=== PATIENT | male | born 1965 | race Caucasian/White ===

== ENCOUNTER 2016-11-15 13:54 | Emergency (ER) | payer SELFPAY ==
[~2016-11-15] VITALS: Ht 167.6 cm; Wt 85.0 kg
[~2016-11-15 13:54] MED LIST: 1-ME1LIQ PO; ALPR0.25 PO; CLON.1 PO; FOLI1 PO; GLUCTAB PO; LISI5 PO; LORTA5 PO; MECL25CH PO; METO100T9 PO; METO50TA PO; PERC7.5T13 PO
[2016-11-15 13:55] VITALS: BP 184/90; PULSE 79; RESP 12; TEMP 98.6; O2SAT 99
--- NOTE | 2016-11-15 14:07 | PD ---
Physical Exam Date Seen by Provider: Nov 15, 2016 Time Seen by Provider: 14:06 Narrative 51 yo male here for right flank pain. Possible kidney stone. Going on for a week , not better. pain is 8/10. Polyuria. No N/V/D. Vitals are stable in triage. Awaiting bed placement. Data Data Last Documented VS Vital Signs Date Time Temp Pulse Resp B/P (MAP) Pulse Ox O2 Delivery O2 Flow Rate FiO2 11/15/16 13:55 98.6 79 12 184/90 (121) 99 MDM Medical Record Reviewed: Yes Supervised Visit with QUYEN: Humble Skinner Nov 15, 2016 14:07
[2016-11-15 15:06] LABS: BACTERIA, URINE OCC /hpf; BLOOD, URINE NEG (NEG); COMMENT (UR) CULTURE INDICATED; CULTURE IF INDICATED CULTURE INDICATED; GLUCOSE,URINE 1000 mg/dL (NEG); KETONE, URINE NEG (NEG); NITRITE,URINE NEG (NEG); SQUAMOUS EPITHELIAL CELL URINE 1 /hpf (0-5); URINE COLOR YELLOW (YELLW/STRAW)
[2016-11-15 15:09] LABS: AUTOMATED NEUTROPHIL # 5.6 TH/MM3 (1.8-7.7); BASOPHIL # 0.1 TH/MM3 (0-0.2); BASOPHIL % 0.7 % (0.0-2.0); EOSINOPHIL # 0.1 TH/MM3 (0-0.4); HEMATOCRIT 47.7 % (39.0-51.0); HEMO FLAGS DIFF FINAL; LYMPH % 15.5 % (9.0-44.0); LYMPHOCYTE # 1.2 TH/MM3 (1.0-4.8); MEAN CELL VOLUME 92.6 FL (80.0-100.0); MEAN CORPUSCULAR HEMOGLOBIN 31.2 PG (27.0-34.0); MEAN CORPUSCULAR HGB CONC 33.7 % (32.0-36.0); MONO % 11.2 % (0.0-8.0); NEUT % 71.6 % (16.0-70.0); PLATELET COUNT 165 TH/MM3 (150-450); RED BLOOD COUNT 5.15 MIL/MM3 (4.50-5.90); RED CELL DISTRIBUTION WIDTH 12.9 % (11.6-17.2); WHITE BLOOD COUNT 7.8 TH/MM3 (4.0-11.0)
[2016-11-15 15:17] LABS: BICARBONATE 28.7 MEQ/L (21.0-32.0); POTASSIUM 4.2 MEQ/L (3.5-5.1)
--- NOTE | 2016-11-15 15:51 | PD ---
HPI Chief Complaint: Flank/Kidney Pain Time Seen by Provider: 15:44 Travel History International Travel<30 days: No Contact w/Intl Traveler<30days: No Traveled to known affect area: No History of Present Illness HPI 51-year-old male with type 2 diabetes presents to the right part was sterilely history of worsening right flank pain. Patient states it's worse with getting up and moving around. He denies dysuri, Fever, Nausea, vomiting. He denies history of kidney stones officially, but thinks he may have passed one about a year ago. He also states about 4 months of sinus congestion and postnasal drip and cough. Patient is a smoker with increased wheezing the past week. He denies significant shortness of breath or fever. Right flank pain is 8 out of 10. Patient is allergic to penicillin, and sulfa. Patient has a history of MRSA. PFSH Past Medical History Hx Anticoagulant Therapy: No Anxiety: Yes Depression: Yes Cardiovascular Problems: No Chemotherapy: No Cerebrovascular Accident: No Diabetes: Yes Diminished Hearing: No Hypertension: Yes Respiratory: No Immunizations Current: Yes Social History Alcohol Use: Yes (4 BEER/DAILY) Tobacco Use: Yes (1 PPD) Substance Use: No Allergies-Medications (Allergen,Severity, Reaction): Coded Allergies: Sulfa (Sulfonamide Antibiotics) (Unverified Allergy, Intermediate, RASH/ HIVES, 11/15/16) penicillin G (Unverified Allergy, Intermediate, RASH/HIVES, 11/15/16) sulfamethoxazole (Unverified Allergy, Unknown, 11/15/16) trimethoprim (Unverified Allergy, Unknown, 11/15/16) *MDRO Multi-Drug Resistant Organism (Verified Adverse Reaction, Unknown, ) 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 Reported Meds & Prescriptions Reported Meds & Active Scripts Active Ventolin Hfa 18 GM Inh (Albuterol Sulfate) 90 Mcg/Act Aer 2 Puff INH Q4-6H PRN Cipro (Ciprofloxacin HCl) 500 Mg Tab 500 Mg PO BID 14 Days Percocet 7.5-325 mg (Oxycodone-Acetaminophen 7.5-325 mg) 1 Tab 1-2 Tab PO Q4H PRN Meclizine Hcl (Meclizine HCl) 25 Mg Chw 25 Mg PO Q8H PRN [place] 5-325 mg (Hydrocodone-Acetaminophen 5-325 mg) 5 mg/325 mg Tab 1 Tab PO Q6H PRN Metoprolol Tartrate 50 mg (Metoprolol Tartrate) 50 Mg Tab 50 Mg PO TID Catapres 0.1 mg (Clonidine HCl) 0.1 Mg Tab 1 Tab PO BID Folate 1 Mg Tab (Folic Acid) 1 Mg Tab 1 Mg PO DAILY Prinivil 5 mg (Lisinopril) 5 Mg Tab 10 Mg PO DAILY Reported Glucophage XR 24 HR (Metformin HCl) 500 Mg Tab 500 Mg PO BIDPC Metoprolol Succinate ER 100 mg (Metoprolol Succinate) 100 Mg Tab 100 Mg PO DAILY 1-Methyl 2-Pyrrolidinone (1-Methyl 2-Pyrrolidone (Bulk)) 10 Mg Tab 1 Tab PO DAILY Alprazolam 0.25 Mg Tab 0.25 Mg PO BID Glucophage XR 24 HR (Metformin HCl) 500 Mg Tab 1,000 Mg PO BID Review of Systems Except as stated in HPI: all other systems reviewed are Neg General / Constitutional: No: Fever, Chills Eyes: No: Visual changes HENT: Positive: Headaches, Sore Throat, Rhinitis, Rhinorrhea, Congestion, No: Nosebleed, Neck Stiffness, Neck Pain, Dental Difficulties, Ear Discharge, Earache Cardiovascular: No: Chest Pain or Discomfort Respiratory: Positive: Cough, Wheezing, No: Shortness of Breath, Sneezing Gastrointestinal: No: Nausea, Vomiting, Diarrhea, Abdominal Pain Genitourinary: Positive: Flank Pain (see history present illness), No: Urgency , Frequency, Dysuria, Hematuria Musculoskeletal: No: Pain Skin: No Rash Neurologic: No: Weakness Psychiatric: No: Depression Endocrine: No: Polydipsia Hematologic/Lymphatic: No: Easy Bruising Physical Exam Narrative GENERAL: Patient appears in mild to moderate distress. SKIN: Warm and dry. Color. Normal turgor. No rash. HEAD: Atraumatic. Normocephalic. EYES: Pupils equal and round. No scleral icterus. No injection or drainage. ENT: No nasal bleeding or discharge. Mucous membranes pink and moist. TMs are clear bilaterally. Pharynx is unremarkable. Sinus tenderness to palpation. NECK: Trachea midline. Supple and nontender without lymphadenopathy. CARDIOVASCULAR: Regular rate and rhythm. RESPIRATORY: No accessory muscle use. Mild to moderate Diffuse wheezes throughout to auscultation. No rales or rhonchi. Breath sounds equal bilaterally. GASTROINTESTINAL: Abdomen soft, mild right sided flank tenderness, nondistended. No specific rebound is noted. Hepatic and splenic margins not palpable. Mild right-sided CVA tenderness with percussion. MUSCULOSKELETAL: Extremities without clubbing, cyanosis, or edema. No obvious deformities. NEUROLOGICAL: Awake and alert. No obvious cranial nerve deficits. Motor grossly within normal limits. Five out of 5 muscle strength in the arms and legs. Normal speech. PSYCHIATRIC: Appropriate mood and affect; insight and judgment normal. Data Data Last Documented VS Vital Signs Date Time Temp Pulse Resp B/P (MAP) Pulse Ox O2 Delivery O2 Flow Rate FiO2 11/15/16 16:08 99 11/15/16 13:55 98.6 79 12 Orders Orders Complete Blood Count With Diff (11/15/16 14:07) Basic Metabolic Panel (Bmp) (11/15/16 14:07) Urinalysis - C+S If Indicated (11/15/16 14:07) Urine Culture (11/15/16 14:45) Ct Abd/Pel W/O Iv Contrast (11/15/16 15:52) Iv Access Insert/Monitor (11/15/16 15:52) Ecg Monitoring (11/15/16 15:52) Oximetry (11/15/16 15:52) NPO (11/15/16 15:52) Ondansetron Inj (Zofran Inj) (11/15/16 16:00) Sodium Chlor 0.9% 1000 Ml Inj (Ns 1000 M (11/15/16 15:52) Sodium Chloride 0.9% Flush (Ns Flush) (11/15/16 16:00) Chest, Single Ap (11/15/16 15:52) Ketorolac Inj (Toradol Inj) (11/15/16 16:00) Lisinopril (Prinivil) (11/15/16 16:00) Morphine Inj (Morphine Inj) (11/15/16 16:00) Albuterol-Ipratropium Neb (Duoneb Neb) (11/15/16 16:00) Ciprofloxacin (Cipro) (11/15/16 17:45) Labs Laboratory Tests Test 11/15/16 14:40 11/15/16 14:45 White Blood Count 7.8 TH/MM3 Red Blood Count 5.15 MIL/MM3 Hemoglobin 16.1 GM/DL Hematocrit 47.7 % Mean Corpuscular Volume 92.6 FL Mean Corpuscular Hemoglobin 31.2 PG Mean Corpuscular Hemoglobin Concent 33.7 % Red Cell Distribution Width 12.9 % Platelet Count 165 TH/MM3 Mean Platelet Volume 8.4 FL Neutrophils (%) (Auto) 71.6 % Lymphocytes (%) (Auto) 15.5 % Monocytes (%) (Auto) 11.2 % Eosinophils (%) (Auto) 1.0 % Basophils (%) (Auto) 0.7 % Neutrophils # (Auto) 5.6 TH/MM3 Lymphocytes # (Auto) 1.2 TH/MM3 Monocytes # (Auto) 0.9 TH/MM3 Eosinophils # (Auto) 0.1 TH/MM3 Basophils # (Auto) 0.1 TH/MM3 CBC Comment DIFF FINAL Differential Comment Blood Urea Nitrogen 11 MG/DL Creatinine 1.02 MG/DL Random Glucose 305 MG/DL Calcium Level 9.0 MG/DL Sodium Level 138 MEQ/L Potassium Level 4.2 MEQ/L Chloride Level 100 MEQ/L Carbon Dioxide Level 28.7 MEQ/L Anion Gap 9 MEQ/L Estimat Glomerular Filtration Rate 77 ML/MIN Urine Color YELLOW Urine Turbidity CLEAR Urine pH 6.0 Urine Specific [place] 1.030 Urine Protein TRACE mg/dL Urine Glucose (UA) 1000 mg/dL Urine Ketones NEG mg/dL Urine Occult Blood NEG Urine Nitrite NEG Urine Bilirubin NEG Urine Urobilinogen LESS THAN 2.0 MG/DL Urine Leukocyte Esterase SMALL Urine RBC 1 /hpf Urine WBC 13 /hpf Urine Squamous Epithelial Cells 1 /hpf Urine Bacteria OCC /hpf Microscopic Urinalysis Comment CULTURE INDICATED MDM Medical Decision Making Medical Screen Exam Complete: Yes Emergency Medical Condition: Yes Differential Diagnosis Right flank pain. Possible renal colic. Wheezing. Rhonchi. Narrative Course Patient appears medically stable at time of exam. Labs show CBC within normal limits. CMP is unremarkable except for glucose of 305. He is a known type 2 diabetic. Urinalysis shows greater than 1000 close, small leukocyte esterase, 13 white blood cells per high-power field, and occasional bacteria. Chest x-ray is unremarkable per radiologist. Patient is given 30 mg Toradol IV, Zofran IV, 2 mg morphine IV. DuoNeb [address] shows no significant findings per radiology. Patient is symptomatically improved after the above treatment. Patient is treated with Cipro 500 mg twice a day 2 weeks to cover for UTI/ prostatitis as well as bronchitis. Patient is encouraged to quit smoking. Patient is given Ventolin unit dose inhaler 2 puffs every 4-6 hours when necessary cough/wheeze. Patient should follow-up with a local primary care physician or return to emergency department if worsening symptoms warrant. Diagnosis Primary Impression: Prostatitis, acute Additional Impressions: Urinary tract infection Qualified Codes: N30.00 - Acute cystitis without hematuria Bronchitis Referrals: [facility] call for appointment Patient Instructions: Bacteremia (ED), General Instructions, How to Stop Smoking (DC), How to Use a Metered-Dose Inhaler (ED), Prostatitis (ED) Additional Instructions: CT shows no significant findings per radiology. Patient is symptomatically improved after the above treatment. Patient is treated with Cipro 500 mg twice a day 2 weeks to cover for UTI/ prostatitis as well as bronchitis. Patient is encouraged to quit smoking. Patient is given Ventolin unit dose inhaler 2 puffs every 4-6 hours when necessary cough/wheeze. Patient should follow-up with a local primary care physician or return to emergency department if worsening symptoms warrant. Scripts Albuterol 18 GM Inh (Ventolin Hfa 18 GM Inh) 90 Mcg/Act Aer 2 PUFF INH Q4-6H Y for SHORTNESS OF BREATH, #1 INHALER 0 Refills Prov: Perico Gómez MD 11/15/16 Ciprofloxacin (Cipro) 500 Mg Tab 500 MG PO BID for Infection for 14 Days, TAB 0 Refills Prov: Perico Gómez MD 11/15/16 Disposition: 01 DISCHARGE HOME Condition: Stable Efrain Washington Nov 15, 2016 15:51
[2016-11-15] MEDS ORDERED: SODIUM CHLOR 0.9% 1000 ML INJ 1,000 ML IV SCH (15:52)
[2016-11-15] MEDS ORDERED: KETOROLAC TROMETHAMINE 30 MG/ML (IVP) VIAL IVP ONE (16:00)
[2016-11-15] MEDS ORDERED: LISINOPRIL 20 MG TAB PO ONE (16:00)
[2016-11-15] MEDS ORDERED: ONDANSETRON HCL 4 MG/2 ML VIAL IVP ONE (16:00)
[2016-11-15] MEDS ORDERED: RESP: ALBUTEROL 2.5 MG/IPRATROPIUM 0.5 MG NEB (SCH) INH ONE (16:00)
[2016-11-15] MEDS ORDERED: MORPHINE SULFATE 4 MG/ML INJ IV PUSH ONE (16:00)
[2016-11-15] MEDS ORDERED: SODIUM CHLORIDE 0.9% FLUSH 10 ML FLUSH IV FLUSH PRN (16:00)
[2016-11-15 16:08] VITALS: O2SAT 99
--- NOTE | 2016-11-15 16:40 | RADRPT ---
EXAM DATE/TIME: 11/15/2016 15:52 [facility] COMPARISON: CHEST PA & LAT, September 25, 2015, 8:38. INDICATIONS : Flank pain, no chest complaint. MEDICAL HISTORY : Hypertension. SURGICAL HISTORY : None. ENCOUNTER: Initial ACUITY: 2 weeks PAIN SCORE: 0/10 LOCATION: Bilateral chest FINDINGS: A single view of the chest demonstrates the lungs to be symmetrically aerated without evidence of mas s, infiltrate or effusion. The cardiomediastinal contours are unremarkable. Previous left clavicle f racture with nonunion. CONCLUSION: No acute disease Adalid Degroot MD on November 15, 2016 at 16:38 Board Certified Radiologist. This report was verified electronically.
--- NOTE | 2016-11-15 17:19 | RADRPT ---
EXAM DATE/TIME: 11/15/2016 16:48 [facility] COMPARISON: No previous studies available for comparison. INDICATIONS : Patient complains of right flank pain for one week. ORAL CONTRAST: No oral contrast ingested. RADIATION DOSE: 8.36 CTDIvol (mGy) MEDICAL HISTORY : Diabetes mellitus type 1. Hypertension. SURGICAL HISTORY : None. ENCOUNTER: Initial ACUITY: 1 week PAIN SCALE: 5/10 LOCATION: Right flank TECHNIQUE: Volumetric scanning of the abdomen and pelvis was performed. Using automated exposure control and ad justment of the mA and/or kV according to patient size, radiation dose was kept as low as reasonably achievable to obtain optimal diagnostic quality images. DICOM format image data is available electro nically for review and comparison. FINDINGS: There are several mildly prominent upper abdominal lymph nodes identified, most conspicuous is a port ocaval node which measures approximately 4.7 x 2 x 3.9 cm (sagittal x AP x transverse). LOWER LUNGS: The visualized lower lungs are clear. LIVER: Diffusely diminished densities suggesting steatosis. No definite mass or ductal dilatation. SPLEEN: Normal size without lesion. PANCREAS: Within normal limits. KIDNEYS: Normal in size and shape. There is no mass, stone, or hydronephrosis. ADRENAL GLANDS: Within normal limits. VASCULAR: There is no aortic aneurysm. BOWEL/MESENTERY: The stomach, small bowel, and colon demonstrate no acute abnormality. There is no free intraperitone al air or fluid. ABDOMINAL WALL: Within normal limits. RETROPERITONEUM: There is no lymphadenopathy. BLADDER: No wall thickening or mass. REPRODUCTIVE: Within normal limits. INGUINAL: There is no lymphadenopathy or hernia. MUSCULOSKELETAL: Within normal limits for patient age. CONCLUSION: No evidence of kidney stone or hydronephrosis. Hepatic steatosis. Mildly prominent upper abdominal lymph nodes, largest in the portacaval space has an otherwise fairly benign appearance and could probably be safely followed Adalid Degroot MD on November 15, 2016 at 16:59 Board Certified Radiologist. This report was verified electronically.
[2016-11-15] MEDS ORDERED: VENTAER INH (17:37)
[2016-11-15] MEDS ORDERED: CIPR-9 PO (17:37)
[2016-11-15] MEDS ORDERED: CIPROFLOXACIN 500 MG TAB PO ONE (17:45)
== END 2016-11-15 18:26 | disposition home or self-care (01) ==
LOC: NEPD 13:54
DX: N41.0 Acute prostatitis (principal); N39.0 Urinary tract infection, site not specified; J40 Bronchitis, not specified as acute or chronic; R51 Headache; E11.9 Type 2 diabetes mellitus without complications; F41.9 Anxiety disorder, unspecified; F32.9 Major depressive disorder, single episode, unspecified; I10 Essential (primary) hypertension; F17.200 Nicotine dependence, unspecified, uncomplicated
CPT/HCPCS: 71010; 74176; 80048; 81001; 85025; 87086; 94664; 96374; 96375; 99285; J1885; J2270; J2405; J7030

== ENCOUNTER 2016-12-15 10:00 | Emergency (ER) | payer OTHER ==
[~2016-12-15] VITALS: Ht 167.6 cm; Wt 90.0 kg
[~2016-12-15 10:00] MED LIST changes: +CIPR-9 PO; +VENTAER INH
[2016-12-15 10:03] VITALS: BP 179/98; PULSE 110; RESP 18; TEMP 100.1; O2SAT 96
[2016-12-15] MEDS ORDERED: SODIUM CHLOR 0.9% 1000 ML INJ 1,000 ML IV SCH (10:49)
[2016-12-15] MEDS ORDERED: oxyCODONE/ACETAMINOPHEN 5 MG/325 MG TAB PO ONE (11:00)
[2016-12-15] MEDS ORDERED: SODIUM CHLORIDE 0.9% FLUSH 10 ML FLUSH IVF PRN (11:00)
[2016-12-15] MEDS ORDERED: TETANUS/DIPHTHERIA TOXOID ADULT 0.5 ML VIAL IM ONE (11:00)
[2016-12-15 11:16] VITALS: RESP 20; O2SAT 96
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
[2016-12-15 11:45] LABS: AUTOMATED NEUTROPHIL # 7.7 TH/MM3 (1.8-7.7); BASOPHIL % 0.3 % (0.0-2.0); EOSINOPHIL % 0.4 % (0.0-4.0); HEMATOCRIT 47.3 % (39.0-51.0); HEMO FLAGS DIFF FINAL; MEAN CELL VOLUME 91.5 FL (80.0-100.0); MEAN CORPUSCULAR HEMOGLOBIN 31.1 PG (27.0-34.0); MONO % 9.5 % (0.0-8.0); NEUT % 79.8 % (16.0-70.0); PLATELET COUNT 157 TH/MM3 (150-450); RED BLOOD COUNT 5.17 MIL/MM3 (4.50-5.90); RED CELL DISTRIBUTION WIDTH 12.7 % (11.6-17.2); WHITE BLOOD COUNT 9.6 TH/MM3 (4.0-11.0)
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
[2016-12-15 12:13] LABS: BICARBONATE 27.4 MEQ/L (21.0-32.0); POTASSIUM 4.5 MEQ/L (3.5-5.1)
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
[2016-12-15] MEDS ORDERED: LISI10TA3 PO (12:46)
[2016-12-15] MEDS ORDERED: HYDR-3535 PO (12:46)
[2016-12-15] MEDS ORDERED: ALPR.25 PO (12:46)
[2016-12-15] MEDS ORDERED: METF1000 PO (12:46)
[2016-12-15] MEDS ORDERED: METO100T PO (12:46)
[2016-12-15] MEDS ORDERED: PERC5TAB12 PO (13:30)
[2016-12-15] MEDS ORDERED: CEPH-460 PO (13:30)
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
== END 2016-12-15 15:47 | disposition home or self-care (01) ==
LOC: NEPD 10:00
DX: S82.432A Displaced oblique fracture of shaft of left fibula, initial encounter for closed fracture (principal); S00.81XA Abrasion of other part of head, initial encounter; F41.9 Anxiety disorder, unspecified; F32.9 Major depressive disorder, single episode, unspecified; E11.9 Type 2 diabetes mellitus without complications; I10 Essential (primary) hypertension; F17.200 Nicotine dependence, unspecified, uncomplicated; V28.4XXA Motorcycle driver injured in noncollision transport accident in traffic accident, initial encounter; Z23 Encounter for immunization
CPT/HCPCS: 29505; 29515; 70450; 71010; 72125; 73590; 73610; 80048; 85025; 90714; 96372; 99285; E0113; J7030; L0150

== ENCOUNTER 2017-01-05 13:51 | Emergency (ER) | payer SELFPAY ==
[~2017-01-05 13:51] MED LIST changes: -1-ME1LIQ PO; +ALPR.25 PO; -ALPR0.25 PO; +CEPH-460 PO; -CIPR-9 PO; -CLON.1 PO; -FOLI1 PO; -GLUCTAB PO; +HYDR-3535 PO; +LISI10TA3 PO; -LISI5 PO; -LORTA5 PO; -MECL25CH PO; +METF1000 PO; +METO100T PO; -METO100T9 PO; -METO50TA PO; +PERC5TAB12 PO; -PERC7.5T13 PO
[2017-01-05 13:53] VITALS: BP 152/96; PULSE 73; RESP 14; TEMP 98.2; O2SAT 98
--- NOTE | 2017-01-05 14:44 | PD ---
HPI Chief Complaint: Musculoskeletal Complaint Time Seen by Provider: 14:41 Travel History International Travel<30 days: No Contact w/Intl Traveler<30days: No Traveled to known affect area: No History of Present Illness HPI 51-year-old male presents to the emergency room from [facility] for brace basement. Patient was sent here by Dr. Echavarria with a prescription for a walking boot. He was diagnosed with proximal fibular fracture of the left leg one month ago. Has follow-up appointment today, patient states that orthopedic physician was most concerned about syndesmotic ligament injury and medial ankle sprain. Patient reports improvement in pain. States he has had to work since fracturing his leg and has been walking on it without any brace. PFSH Past Medical History Hx Anticoagulant Therapy: No Anxiety: Yes Depression: Yes Cardiovascular Problems: No Chemotherapy: No Cerebrovascular Accident: No Diabetes: Yes Diminished Hearing: No Hypertension: Yes Respiratory: No Immunizations Current: Yes Social History Alcohol Use: Yes (4 BEER/DAILY) Tobacco Use: Yes (1 PPD) Substance Use: No Allergies-Medications (Allergen,Severity, Reaction): Coded Allergies: Sulfa (Sulfonamide Antibiotics) (Unverified Allergy, Intermediate, RASH/ HIVES, 01/05/17) penicillin G (Unverified Allergy, Intermediate, RASH/HIVES, 01/05/17) sulfamethoxazole (Unverified Allergy, Unknown, 01/05/17) trimethoprim (Unverified Allergy, Unknown, 01/05/17) *MDRO Multi-Drug Resistant Organism (Verified Adverse Reaction, Unknown, 01/05/17) 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 Reported Meds & Prescriptions Reported Meds & Active Scripts Active Percocet (Oxycodone-Acetaminophen) 5-325 mg Tab 1-2 Tab PO Q6H PRN Keflex (Cephalexin) 500 Mg Cap 500 Mg PO Q8H 10 Days Ventolin Hfa 18 GM Inh (Albuterol Sulfate) 90 Mcg/Act Aer 2 Puff INH Q4-6H PRN Reported Lortab (Hydrocodone-Acetaminophen) 10-325 Mg Tab 1 Tab PO TID PRN Metformin (Metformin HCl) 1,000 Mg Tab 1,000 Mg PO BID With meals Lisinopril 10 Mg Tab 10 Mg PO BID Metoprolol Tartrate 100 Mg Tab 100 Mg PO BID Xanax (Alprazolam) 0.25 Mg Tab 0.25 Mg PO BID PRN Review of Systems Except as stated in HPI: all other systems reviewed are Neg Physical Exam Narrative GENERAL: Well-nourished, well-developed male in no acute distress. Afebrile. Ambulatory. SKIN: Focused skin assessment warm/dry. HEAD: Normocephalic. EYES: No scleral icterus. No injection or drainage. NECK: Supple, trachea midline. No JVD or lymphadenopathy. CARDIOVASCULAR: Regular rate and rhythm without murmurs, gallops, or rubs. RESPIRATORY: Breath sounds equal bilaterally. No accessory muscle use. MUSCULOSKELETAL: No cyanosis, or edema. Left leg in a walking boot. Data Data Last Documented VS Vital Signs Date Time Temp Pulse Resp B/P (MAP) Pulse Ox O2 Delivery O2 Flow Rate FiO2 01/05/17 14:48 01/05/17 13:53 98.2 73 14 98 Orders Orders Ed Discharge Order (01/05/17 14:45) Brace Fracture Walker (01/05/17 ) MDM Medical Decision Making Medical Screen Exam Complete: Yes Emergency Medical Condition: Yes Medical Record Reviewed: Yes Differential Diagnosis Fracture, medical clearance, medication refill Narrative Course 51-year-old male presents to the emergency room requesting splint. He presents with a prescription from Dr. Villalta for a left walking boot. Patient fractured his left proximal fibula one month ago and has a syndesmotic ligament injury as well as medial ankle sprain. States he saw the orthopedic surgeon today who was most concerned about the ligament injuries. Patient was placed in a walking boot and discharged with instructions to follow-up with his orthopedic surgeon as needed. Told to return for urgent or emergent medical conditions. He understands and agrees to plan. Diagnosis Primary Impression: Closed fibular fracture Qualified Codes: S82.832D - Other fracture of upper and lower end of left fibula, subsequent encounter for closed fracture with routine healing Referrals: Jun Echavarria MD Additional Instructions: Take ibuprofen with food as directed, as needed for pain. Apply ice to the affected area for 20 minutes at a time, as needed for pain and swelling. Follow-up with Dr. Echavarria as needed. Return to the emergency room for worsening symptoms. Disposition: 01 DISCHARGE HOME Condition: Stable Sharla Ellison Jan 05, 2017 14:44
== END 2017-01-05 14:49 | disposition home or self-care (01) ==
LOC: NEPK 13:51
DX: S82.832D Other fracture of upper and lower end of left fibula, subsequent encounter for closed fracture with routine healing (principal); X58.XXXD Exposure to other specified factors, subsequent encounter
CPT/HCPCS: 99282; L2114

== ENCOUNTER 2017-03-14 13:55 | Emergency (ER) | payer SELFPAY ==
[2017-03-14 13:59] VITALS: BP 186/98; PULSE 101; RESP 22; TEMP 99.1; O2SAT 96
--- NOTE | 2017-03-14 14:29 | PD ---
HPI Chief Complaint: Cold / Flu Symptoms Time Seen by Provider: 14:12 Travel History International Travel<30 days: No Contact w/Intl Traveler<30days: No Traveled to known affect area: No History of Present Illness HPI This patient complains of cough and congestion. He is worried about having pneumonia. He is a cigarette smoker. He's been wheezing. Severity is moderate. Duration 2 weeks. No alleviating factors. Symptoms exacerbated by his smoking PFSH Past Medical History Hx Anticoagulant Therapy: No Anxiety: Yes Depression: Yes Cardiovascular Problems: Yes (HTN) Chemotherapy: No Cerebrovascular Accident: No Diabetes: Yes Patient Takes Glucophage: Yes Diminished Hearing: No Hypertension: Yes Musculoskeletal: Yes ("nerve damage"to his back) Respiratory: No Immunizations Current: Yes Influenza Vaccination: No Social History Alcohol Use: Yes (4 BEER/DAILY) Tobacco Use: Yes (1 PPD) Substance Use: No Allergies-Medications (Allergen,Severity, Reaction): Coded Allergies: Sulfa (Sulfonamide Antibiotics) (Unverified Allergy, Intermediate, RASH/ HIVES, 01/05/17) penicillin G (Unverified Allergy, Intermediate, RASH/HIVES, 01/05/17) sulfamethoxazole (Unverified Allergy, Unknown, 01/05/17) trimethoprim (Unverified Allergy, Unknown, 01/05/17) *MDRO Multi-Drug Resistant Organism (Verified Adverse Reaction, Unknown, 01/05/17) 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 Reported Meds & Prescriptions Reported Meds & Active Scripts Active Prednisone 20 Mg Tab 40 Mg PO DAILY Take 40 mg (2 tablets) daily for 5 days Ventolin Hfa 18 GM Inh (Albuterol Sulfate) 90 Mcg/Act Aer 2 Puff INH Q4H PRN Ventolin Hfa 18 GM Inh (Albuterol Sulfate) 90 Mcg/Act Aer 2 Puff INH Q4-6H PRN Reported Lortab (Hydrocodone-Acetaminophen) 10-325 Mg Tab 1 Tab PO TID PRN Metformin (Metformin HCl) 1,000 Mg Tab 1,000 Mg PO BID With meals Lisinopril 10 Mg Tab 10 Mg PO BID Metoprolol Tartrate 100 Mg Tab 100 Mg PO BID Xanax (Alprazolam) 0.25 Mg Tab 0.25 Mg PO BID PRN Review of Systems General / Constitutional: No: Fever Eyes: No: Visual changes HENT: Positive: Rhinorrhea, Congestion, No: Headaches Cardiovascular: No: Chest Pain or Discomfort Respiratory: Positive: Cough, Shortness of Breath, Wheezing Gastrointestinal: No: Abdominal Pain Genitourinary: No: Dysuria Musculoskeletal: No: Pain Skin: No Rash Neurologic: No: Weakness Psychiatric: No: Depression Endocrine: No: Polydipsia Hematologic/Lymphatic: No: Easy Bruising Physical Exam Narrative GENERAL: Well-nourished, well-developed patient in no apparent distress. SKIN: Focused skin assessment reveals no rash and nodules. Skin is Warm and dry. HEAD: Atraumatic. Normocephalic. EYES: Pupils equal and round. No scleral icterus. No injection or drainage. ENT: No nasal bleeding or discharge. Mucous membranes pink and moist. NECK: Trachea midline. No JVD. CARDIOVASCULAR: Regular rate and rhythm. No murmur appreciated. RESPIRATORY: No accessory muscle use. Expiratory wheezing diffusely with some rhonchi. Breath sounds equal bilaterally. GASTROINTESTINAL: Abdomen soft, non-tender, nondistended. Hepatic and splenic margins not palpable. MUSCULOSKELETAL: No obvious deformities. No clubbing. No cyanosis. No edema. NEUROLOGICAL: Awake and alert. No obvious cranial nerve deficits. Motor grossly within normal limits. Normal speech. PSYCHIATRIC: Appropriate mood and affect; insight and judgment normal. Data Data Last Documented VS Vital Signs Date Time Temp Pulse Resp B/P (MAP) Pulse Ox O2 Delivery O2 Flow Rate FiO2 03/14/17 14:15 03/14/17 14:14 Room Air 03/14/17 13:59 99.1 101 22 96 Orders Orders Chest, Single Ap (03/14/17 ) Influenzae A/B Antigen (03/14/17 14:23) Albuterol-Ipratropium Neb (Duoneb Neb) (03/14/17 14:30) Ed Discharge Order (03/14/17 16:48) [facility] Medical Decision Making Medical Screen Exam Complete: Yes Emergency Medical Condition: Yes Medical Record Reviewed: Yes Differential Diagnosis Bronchitis, pneumonia, COPD Narrative Course I have reviewed the patient's electronic medical record. I gave him a series of nebulizer treatments. I reviewed his chest x-ray which is normal Influenza swab is negative I prescribed him prednisone and albuterol inhaler Quit smoking Diagnosis Primary Impression: Bronchitis Additional Impression: Wheezing Additional Instructions: The patient was advised to follow up with their physician and return if they worsen. Med/Other Pt SpecificInfo: Prescription(s) given Scripts Prednisone (Prednisone) 20 Mg Tab 40 MG PO DAILY, #10 TAB 0 Refills Take 40 mg (2 tablets) daily for 5 days Prov: Michele Castillo MD 03/14/17 Albuterol 18 GM Inh (Ventolin Hfa 18 GM Inh) 90 Mcg/Act Aer 2 PUFF INH Q4H Y for SHORTNESS OF BREATH, #1 INHALER 0 Refills Prov: Michele Castillo MD 03/14/17 Disposition: 01 DISCHARGE HOME Condition: Stable Michele Castillo MD Mar 14, 2017 14:29
[2017-03-14] MEDS ORDERED: RESP: ALBUTEROL 2.5 MG/IPRATROPIUM 0.5 MG NEB (SCH) NEB ONE (14:30)
--- NOTE | 2017-03-14 15:03 | RADRPT ---
EXAM DATE/TIME: 03/14/2017 14:39 [facility] COMPARISON: CHEST SINGLE AP, December 15, 2016, 11:12. INDICATIONS : Short of breath and chest pain for two days. MEDICAL HISTORY : Hypertension. Diabetes mellitus type II. SURGICAL HISTORY : None. ENCOUNTER: Initial ACUITY: 2 days PAIN SCORE: 8/10 LOCATION: Bilateral chest Center FINDINGS: A single view of the chest demonstrates the lungs to be symmetrically aerated without evidence of mas s, infiltrate or effusion. The cardiomediastinal contours are unremarkable. Osseous structures are intact with old healed left-sided clavicular fracture again noted. CONCLUSION: No acute disease. Kerwin Foote MD on March 14, 2017 at 15:01 Board Certified Radiologist. This report was verified electronically.
[2017-03-14] MEDS ORDERED: PRED20 PO (16:49)
[2017-03-14] MEDS ORDERED: VENTAER INH (16:49)
[2017-03-14] MEDS ORDERED: oxyCODONE/ACETAMINOPHEN 5 MG/325 MG TAB PO ONE (17:00)
== END 2017-03-14 17:06 | disposition home or self-care (01) ==
LOC: NEPD 13:55
DX: J40 Bronchitis, not specified as acute or chronic (principal); E11.9 Type 2 diabetes mellitus without complications; I10 Essential (primary) hypertension; F17.200 Nicotine dependence, unspecified, uncomplicated; Z79.84 Long term (current) use of oral hypoglycemic drugs
CPT/HCPCS: 71010; 87804; 94664; 99284

== ENCOUNTER 2017-03-22 00:14 | Emergency (ER) | payer OTHER ==
[~2017-03-22] VITALS: Ht 167.6 cm; Wt 82.0 kg
[~2017-03-22 00:14] MED LIST changes: -CEPH-460 PO; -PERC5TAB12 PO; +PRED20 PO
[2017-03-22 00:25] VITALS: BP 203/106; PULSE 118; RESP 18; TEMP 97.9; O2SAT 94
[2017-03-22] MEDS ORDERED: HYDR-3583 PO (00:25)
[2017-03-22] MEDS ORDERED: RESP: ALBUTEROL 2.5 MG/IPRATROPIUM 0.5 MG NEB (SCH) NEB ONE (00:30)
[2017-03-22] MEDS ORDERED: cloNIDine HCL 0.1 MG TAB PO ONE (00:30)
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
[2017-03-22 00:38] VITALS: O2SAT 95
[2017-03-22] MEDS ORDERED: ACETAMINOPHEN 500 MG CPLT PO ONE (00:45)
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
== END 2017-03-22 02:02 ==
LOC: NEPD 00:14
DX: S09.90XA Unspecified injury of head, initial encounter (principal); S00.83XA Contusion of other part of head, initial encounter; I10 Essential (primary) hypertension; E11.9 Type 2 diabetes mellitus without complications; J44.9 Chronic obstructive pulmonary disease, unspecified; F41.9 Anxiety disorder, unspecified; F32.9 Major depressive disorder, single episode, unspecified; F17.200 Nicotine dependence, unspecified, uncomplicated; Y04.2XXA Assault by strike against or bumped into by another person, initial encounter
CPT/HCPCS: 70450; 94664; 99284